=== PATIENT | female | born 1960 | race Caucasian/White ===

== ENCOUNTER 2017-10-09 18:17 | Emergency (ER) | payer OTHER ==
--- NOTE | 2017-10-09 18:24 | PDOC ---
Rapid Medical Evaluation Time Seen by Provider: 10/09/17 18:19 Medical Evaluation: Allergies Allergy/AdvReac Type Severity Reaction Status Date / Time No Known Drug Allergies Allergy Verified 02/07/16 10:32 10/09/17 18:19 I have performed a brief in-person evaluation of this patient. The patient presents with a chief complaint of: hx of diarrhea x years, had endoscopy and biopsy saturday for workup, felt uncomfortable saturday, pain since this morning, couldn't sit since 1 this afternoon, "felt like when i had caesarean", took motrin an hour ago w/o relief Pertinent physical exam findings: uncomfortable appearing I have ordered the following: labs The patient will proceed to the ED for further evaluation. Discharge Disposition - Diagnosis Abdominal pain - Referrals - Patient Instructions - Post Discharge Activity
[2017-10-09 18:26] VITALS: BP 165/102; PULSE 104; TEMP 99.8; BMI 31.8
[2017-10-09 18:59] LABS: BASO % 0.3 % (0-2.0); EOS % 0.7 % (0-4.5); HEMATOCRIT 39.7 % (32.4-45.2); HEMOGLOBIN 13.5 GM/dL (10.7-15.3); LYMPH % 26.9 % (8-40); MCH 30.2 pg (25.7-33.7); MCHC 34.1 g/dl (32.0-36.0); MEAN CELL VOLUME 88.5 fl (80-96); MEAN PLT VOLUME 8.4 fl (7.5-11.1); MONO % 6.6 % (3.8-10.2); NEUT % 65.5 % (42.8-82.8); PLATELET COUNT 256 K/MM3 (134-434); RBC 4.48 M/mm3 (3.60-5.2); RDW 13.3 % (11.6-15.6); WHITE BLOOD COUNT 7.8 K/mm3 (4.0-10.0)
[2017-10-09 19:01] LABS: URINE APPEARANCE CLEAR; URINE BILIRUBIN NEGATIVE (NEGATIVE); URINE BLOOD NEGATIVE (NEGATIVE); URINE COLOR STRAW; URINE GLUCOSE (UA) NEGATIVE (NEGATIVE); URINE KETONE NEGATIVE (NEGATIVE); URINE LEUK ESTERASE NEGATIVE (NEGATIVE); URINE NITRITE NEGATIVE (NEGATIVE); URINE PROTEIN NEGATIVE (NEGATIVE); URINE UROBILINOGEN NEGATIVE mg/dL (0.2-1.0)
[2017-10-09 19:12] LABS: INR 1.03 (0.82-1.09); PROTHROMBIN TIME (PATIENT) 11.6 SEC (9.98-11.88)
[2017-10-09 19:23] LABS: ALBUMIN 3.9 g/dl (3.4-5.0); ANION GAP 10 (8-16); BILIRUBIN,TOTAL 0.5 mg/dL (0.2-1.0); BLOOD UREA NITROGEN 11 mg/dL (7-18); CALCIUM 8.3 mg/dL (8.5-10.1); CHLORIDE 105 mmol/L (98-107); CO2 24 mmol/L (21-32); CREATININE 0.6 mg/dL (0.55-1.02); GLUCOSE,RANDOM 118 mg/dL (74-106); POTASSIUM 3.8 mmol/L (3.5-5.1); SGOT/AST 23 U/L (15-37); SODIUM 139 mmol/L (136-145); TOT PROT 7.6 g/dl (6.4-8.2)
[2017-10-09 19:29] LABS: ALK PHOS 120 U/L (45-117); SGPT/ALT 41 U/L (12-78)
--- NOTE | 2017-10-09 20:00 | PDOC ---
History of Present Illness - General History Source: Patient, Old Records Exam Limitations: No Limitations - History of Present Illness Initial Comments: 10/09/17 20:07 The patient is a 57 year old female with no significant past medical history, who presents to the emergency department today for further evaluation of abdominal pain today and diarrhea for 2 years. The patient states that on Saturday she visited her GI doctor and received an endoscopy and colonoscopy ( results pending). Today her abdominal pain became worse and she reported here. She notes that she has been able to eat and that she has not experienced any weight loss. She denies fever and dysuria. <Sam Robbins - Last Filed: 10/09/17 20:07> - General History Source: Patient <JerichoIftikhar hunter - Last Filed: 10/09/17 22:05> - General Chief Complaint: Pain, Acute Stated Complaint: PAIN Time Seen by Provider: 10/09/17 18:19 Past History <Sam Robbins - Last Filed: 10/09/17 20:07> - Past Medical History Anemia: No Asthma: No Cancer: No Cardiac Disorders: No CVA: No COPD: No CHF: No Dementia: No Diabetes: No GI Disorders: No Disorders: No HTN: No Hypercholesterolemia: No Liver Disease: No Seizures: No Thyroid Disease: No - Surgical History Abdominal Surgery: Yes Appendectomy: No Cardiac Surgery: No Cholecystectomy: No Lung Surgery: No Neurologic Surgery: No - Immunization History Immunization Up to Date: Yes - Suicide/Smoking/Psychosocial Hx Smoking History: Never smoked Have you smoked in the past 12 months: No Hx Alcohol Use: No Drug/Substance Use Hx: No Substance Use Type: None Hx Substance Use Treatment: No <Iftikhar Nix - Last Filed: 10/09/17 22:05> - Past Medical History Allergies/Adverse Reactions: Allergies Allergy/AdvReac Type Severity Reaction Status Date / Time No Known Drug Allergies Allergy Verified 10/09/17 18:19 Home Medications: Ambulatory Orders Ibuprofen 600 mg PO PRN 10/09/17 levoFLOXacin [Levaquin -] 500 mg PO DAILY #7 tablet 10/09/17 metroNIDAZOLE [Flagyl] 500 mg PO BID #14 tablet 10/09/17 Review of Systems - Review of Systems Able to Perform ROS?: Yes Comments:: 10/09/17 20:08 CONSTITUTIONAL: Absent: fever, no chills, no fatigue EYES: Absent: visual changes ENT: Absent: ear pain, no sore throat CARDIOVASCULAR: Absent: chest pain, no palpitations RESPIRATORY: Absent: cough, no SOB GI: (+) Abdominal pain, diarrhea. Absent: No nausea, no vomiting, no constipation, GENITOURINARY: Absent: dysuria, no frequency, no hematuria MUSCULOSKELETAL: Absent: back pain, no arthralgia, no myalgia SKIN: Absent: rash <Sam Robbins - Last Filed: 10/09/17 20:07> *Physical Exam - Vital Signs Last Vital Signs Temp Pulse Resp BP Pulse Ox 99.8 F H 104 H 19 165/102 98 10/09/17 18:19 10/09/17 18:19 10/09/17 18:19 10/09/17 18:19 10/09/17 18:19 - Physical Exam Comments: 10/09/17 20:08 GENERAL: Well-appearing, well-nourished. No apparent distress. HEENT: Normocephalic, atraumatic. PERRL, EOM intact. CARDIOVASCULAR: Normal S1, S2. Regular rate and rhythm. PULMONARY: Clear to auscultation bilaterally. ABDOMEN: Soft, non-distended, non-tender. EXTREMITIES: Normal ROM in all four extremities. No gross deformities. SKIN: Warm, dry. No rash NEUROLOGICAL: No focal neurological deficits. <Urban Robbinske - Last Filed: 10/09/17 20:07> - Vital Signs Last Vital Signs Temp Pulse Resp BP Pulse Ox 99.8 F H 104 H 19 165/102 98 10/09/17 18:19 10/09/17 18:19 10/09/17 18:19 10/09/17 18:19 10/09/17 18:19 <Iftikhar Nix - Last Filed: 10/09/17 22:05> ED Treatment Course - LABORATORY CBC & Chemistry Diagram: 10/09/17 18:40 10/09/17 18:40 - ADDITIONAL ORDERS Additional order review: Laboratory Results 10/09/17 10/09/17 10/09/17 18:46 18:40 18:40 PT with INR INR Sodium 139 Potassium 3.8 Chloride 105 Carbon Dioxide 24 Anion Gap 10 BUN 11 Creatinine 0.6 Creat Clearance w eGFR > 60 Random Glucose 118 H Calcium 8.3 L Total Bilirubin 0.5 D AST 23 ALT 41 Alkaline Phosphatase 120 H Total Protein 7.6 Albumin 3.9 Lipase 113 Urine Color Straw Urine Appearance Clear Urine pH 6.0 Ur Specific [place] 1.009 Urine Protein Negative Urine Glucose (UA) Negative Urine Ketones Negative Urine Blood Negative Urine Nitrite Negative Urine Bilirubin Negative Urine Urobilinogen Negative Ur Leukocyte Esterase Negative 10/09/17 18:40 PT with INR 11.60 INR 1.03 Sodium Potassium Chloride Carbon Dioxide Anion Gap BUN Creatinine Creat Clearance w eGFR Random Glucose Calcium Total Bilirubin AST ALT Alkaline Phosphatase Total Protein Albumin Lipase Urine Color Urine Appearance Urine pH Ur Specific [place] Urine Protein Urine Glucose (UA) Urine Ketones Urine Blood Urine Nitrite Urine Bilirubin Urine Urobilinogen Ur Leukocyte Esterase 10/09/17 18:40 RBC 4.48 MCV 88.5 MCHC 34.1 RDW 13.3 MPV 8.4 Neutrophils % 65.5 Lymphocytes % 26.9 Monocytes % 6.6 Eosinophils % 0.7 Basophils % 0.3 <Sam Robbins - Last Filed: 10/09/17 20:07> - LABORATORY CBC & Chemistry Diagram: 10/09/17 18:40 10/09/17 18:40 - ADDITIONAL ORDERS Additional order review: Laboratory Results 10/09/17 10/09/17 10/09/17 18:46 18:40 18:40 PT with INR INR Sodium 139 Potassium 3.8 Chloride 105 Carbon Dioxide 24 Anion Gap 10 BUN 11 Creatinine 0.6 Creat Clearance w eGFR > 60 Random Glucose 118 H Calcium 8.3 L Total Bilirubin 0.5 D AST 23 ALT 41 Alkaline Phosphatase 120 H Total Protein 7.6 Albumin 3.9 Lipase 113 Urine Color Straw Urine Appearance Clear Urine pH 6.0 Ur Specific [place] 1.009 Urine Protein Negative Urine Glucose (UA) Negative Urine Ketones Negative Urine Blood Negative Urine Nitrite Negative Urine Bilirubin Negative Urine Urobilinogen Negative Ur Leukocyte Esterase Negative 10/09/17 18:40 PT with INR 11.60 INR 1.03 Sodium Potassium Chloride Carbon Dioxide Anion Gap BUN Creatinine Creat Clearance w eGFR Random Glucose Calcium Total Bilirubin AST ALT Alkaline Phosphatase Total Protein Albumin Lipase Urine Color Urine Appearance Urine pH Ur Specific [place] Urine Protein Urine Glucose (UA) Urine Ketones Urine Blood Urine Nitrite Urine Bilirubin Urine Urobilinogen Ur Leukocyte Esterase 10/09/17 18:40 RBC 4.48 MCV 88.5 MCHC 34.1 RDW 13.3 MPV 8.4 Neutrophils % 65.5 Lymphocytes % 26.9 Monocytes % 6.6 Eosinophils % 0.7 Basophils % 0.3 <Iftikhar Nix - Last Filed: 10/09/17 22:05> Medical Decision Making - Medical Decision Making 10/09/17 22:05 Dr. Nix: The scribe's documentation has been prepared under my direction and personally reviewed by me in its entirery. I confirm that the note above accurately reflects all work, treatment, procedures, and medical decision making performed by me. <Iftikhar Nix - Last Filed: 10/09/17 22:05> *DC/Admit/Observation/Transfer - Attestations Scribe Attestion: 10/09/17 20:08 Documentation prepared by Sam Robbins, acting as medical scientific officer for Iftikhar Nix DO. <Sam Robbins - Last Filed: 10/09/17 20:07> - Discharge Dispostion Admit: No <Iftikhar Nix - Last Filed: 10/09/17 22:05> Diagnosis at time of Disposition: Abdominal pain, Acute diverticulitis - Discharge Dispostion Disposition: HOME Condition at time of disposition: Stable - Referrals Referrals: Praveena Mena [Primary Care Provider] - - Patient Instructions Printed Discharge Instructions: DI for Diverticulitis Additional Instructions: Please follow up with your GI doctor as soon as possible for re-evaluation of diverticulitis. Take medication as directed. Return if any problems. Print Language: TAMAZIGHT - Post Discharge Activity
[2017-10-09] MEDS ORDERED: SODIUM CHLORIDE 1,000 ML IV STA (20:17)
== END 2017-10-09 22:12 | disposition home or self-care (01) ==
LOC: JER 18:17
PROC: 3E0337Z Introduction of Electrolytic and Water Balance Substance into Peripheral Vein, Percutaneous Approach (ICD-10-PCS; principal; 2017-10-09)
PROC: 3E03329 Introduction of Other Anti-infective into Peripheral Vein, Percutaneous Approach (ICD-10-PCS; 2017-10-09)
DX: K57.32 Diverticulitis of large intestine without perforation or abscess without bleeding (principal); K80.20 Calculus of gallbladder without cholecystitis without obstruction
CPT/HCPCS: 36415; 74176-TC; 80053; 81003; 83690; 85025; 85610; 87040; 87077; 87086; 87186; 99284-25

== ENCOUNTER 2018-04-16 00:15 | Observation (INO) | payer OTHER ==
[2018-04-16] MEDS ORDERED: SODIUM CHLORIDE 1,000 ML IV STA (02:15)
[2018-04-16] MEDS ORDERED: FAMOTIDINE 20 MG/50 ML IVPB 20 MG/50 ML MG IVPB ONE ×2 (02:15→03:42)
[2018-04-16] MEDS ORDERED: ONDANSETRON 4 MG/2 ML VIAL IVPUSH ONE ×2 (02:15→11:32)
[2018-04-16 02:17] VITALS: BMI 35.2
[2018-04-16] MEDS ORDERED: MAG HYDROX/AL HYDROX/SIMETH 30 ML UNIT-DOSE CUP PO ONE (03:03)
[2018-04-16] MEDS ORDERED: ACETAMINOPHEN 325 MG TABLET (FP) PO ONE (03:04)
[2018-04-16] MEDS ORDERED: ACETAMINOPHEN 325 MG TABLET (FP) ONE (03:42)
[2018-04-16] MEDS ORDERED: ONDANSETRON 4 MG/2 ML VIAL ONE ×3 (03:42→20:00)
[2018-04-16] MEDS ORDERED: MAG HYDROX/AL HYDROX/SIMETH 30 ML UNIT-DOSE CUP ONE (03:42)
[2018-04-16 03:53] LABS: BASO % 0.4 % (0-2.0); EOS % 0.2 % (0-4.5); HEMATOCRIT 40.5 % (32.4-45.2); HEMOGLOBIN 13.7 GM/dL (10.7-15.3); LYMPH % 12.4 % (8-40); MCH 30.4 pg (25.7-33.7); MCHC 33.9 g/dl (32.0-36.0); MEAN CELL VOLUME 89.8 fl (80-96); MONO % 2.4 % (3.8-10.2); NEUT % 84.6 % (42.8-82.8); PLATELET COUNT 283 K/MM3 (134-434); RBC 4.51 M/mm3 (3.60-5.2); RDW 13.7 % (11.6-15.6); WHITE BLOOD COUNT 10.2 K/mm3 (4.0-10.0)
[2018-04-16 04:13] LABS: ALBUMIN 3.8 g/dl (3.4-5.0); ALK PHOS 146 U/L (45-117); ANION GAP 6 MMOL/L (8-16); BILIRUBIN,TOTAL 0.4 mg/dL (0.2-1.0); BLOOD UREA NITROGEN 13 mg/dL (7-18); CALCIUM 8.6 mg/dL (8.5-10.1); CHLORIDE 108 mmol/L (98-107); CO2 28 mmol/L (21-32); CREATININE 0.7 mg/dL (0.55-1.02); GLUCOSE,RANDOM 139 mg/dL (74-106); LIPASE 109 U/L (73-393); SGPT/ALT 155 U/L (12-78); SODIUM 142 mmol/L (136-145); TOT PROT 7.7 g/dl (6.4-8.2)
[2018-04-16 04:14] LABS: POTASSIUM 4.7 mmol/L (3.5-5.1); SGOT/AST 56 U/L (15-37)
--- NOTE | 2018-04-16 04:14 | PDOC ---
History of Present Illness - General Chief Complaint: Pain Stated Complaint: VOMITING Time Seen by Provider: 04/16/18 02:15 History Source: Patient Exam Limitations: No Limitations - History of Present Illness Initial Comments: 04/16/18 04:13 Art Perez 57 YOF with no medical history presenting with acute onset of epigastric pain, nausea and NBNB emesis since 9pm tonight. No fevers or chills, no flank pain or urinary sx. Ate rice and beans earlier today, but no other sick contacts or travel or suspicious food intake. Past History - Past Medical History Allergies/Adverse Reactions: Allergies Allergy/AdvReac Type Severity Reaction Status Date / Time No Known Drug Allergies Allergy Verified 04/16/18 02:09 Home Medications: Ambulatory Orders NK [No Known Home Medication] 04/16/18 Anemia: No Asthma: No Cancer: No Cardiac Disorders: No CVA: No COPD: No CHF: No Dementia: No Diabetes: No GI Disorders: No Disorders: No HTN: No Hypercholesterolemia: No Liver Disease: No Seizures: No Thyroid Disease: No - Surgical History Abdominal Surgery: Yes Appendectomy: No Cardiac Surgery: No Cholecystectomy: No Lung Surgery: No Neurologic Surgery: No - Immunization History Immunization Up to Date: Yes - Suicide/Smoking/Psychosocial Hx Smoking History: Never smoked Have you smoked in the past 12 months: No Information on smoking cessation initiated: No Hx Alcohol Use: No Drug/Substance Use Hx: No Substance Use Type: None Hx Substance Use Treatment: No Review of Systems - Review of Systems Able to Perform ROS?: Yes Comments:: 04/16/18 04:14 GENERAL/CONSTITUTIONAL: No fever or chills. No weakness. no sweats. HEAD, EYES, EARS, NOSE AND THROAT: No change in vision or hearing. No ear pain or discharge. No sore throat or mouth pain. No difficulty swallowing.. No congestion. CARDIOVASCULAR: No chest pain or palpitations, syncope or edema. RESPIRATORY: No SOB, cough, wheezing, or hemoptysis. GASTROINTESTINAL: +abdominal pain, nausea/vomiting. No diarrhea or constipation. GENITOURINARY: No hematuria, dysuria, frequency, urgency or other changes. MUSCULOSKELETAL: No joint or muscle swelling or pain. No neck or back pain. SKIN: No rash or changes in skin color or lesions. NEUROLOGIC: No headache, vertigo, loss of consciousness, or change in strength/ sensation. No gait instability. HEMATOLOGIC/LYMPHATIC: No anemia, easy bruising/bleeding, or history of blood clots. ALLERGIC/IMMUNOLOGIC: No allergies All other systems reviewed and negative, or as documented in HPI. *Physical Exam - Vital Signs Last Vital Signs Temp Pulse Resp BP Pulse Ox 98.5 F 53 L 18 147/93 99 04/16/18 02:11 04/16/18 02:11 04/16/18 02:11 04/16/18 02:11 04/16/18 02:11 - Physical Exam Comments: 04/16/18 04:14 General: mild distress 2/2 nausea and vomiting. HEENT: NCAT, PERRL, EOMI, clear conjunctiva, anicteric, moist mucus membranes, clear oropharynx, no oral lesions.. Neck: neck supple, FROM Resp: CTAB, normal and even respirations, no respiratory distress CVS: RRR, no murmurs, 2+ peripheral pulses throughout, no peripheral edema Abdomen: soft, +epigastric TTP, no RUQ tenderness or Jones's, no peritoneal signs. Back: nontender, normal inspection and ROM MSK: no edema, POSADA x4, ROM intact. No clubbing or cyanosis. normal bulk and tone. Neuro: alert, oriented appropriately; no focal neurologic deficits. SILT, 5/5 distal and prox strength in all extrem. speech clear. Skin: warm and well perfused, cap refill <2 sec, normal color 04/16/18 07:18 Procedures - Bedside Ultrasound Bedside Ultrasound: Gallbladder Remarks: 04/16/18 07:20 RUQ biliary ultrasound performed for abdominal pain. views obtained: gallbladder long and short, CBD. findings: multiple gallstones in gallbladder, normal GB wall and no pericholecystic fluid. CBD normal for age ~5mm. no sonographic jones's sign impression: cholelithiasis w/o cholecystitis. ED Treatment Course - LABORATORY CBC & Chemistry Diagram: 04/16/18 03:40 04/16/18 03:40 - ADDITIONAL ORDERS Additional order review: 04/16/18 03:40 RBC 4.51 MCV 89.8 MCHC 33.9 RDW 13.7 MPV 8.0 Neutrophils % 84.6 H D Lymphocytes % 12.4 D Monocytes % 2.4 L Eosinophils % 0.2 Basophils % 0.4 - Medications Given in the ED: ED Medications Discontinued Medications Generic Name Dose Route Start Last Admin Trade Name Stevo PRN Reason Stop Dose Admin Acetaminophen 975 mg 04/16/18 03:04 04/16/18 03:53 Tylenol - PO 04/16/18 03:05 Not Given ONCE ONE Al Hydroxide/Mg Hydroxide 30 ml 04/16/18 03:03 04/16/18 03:53 Mylanta Oral Suspension - PO 04/16/18 03:04 30 ml ONCE ONE Administration Famotidine/Sodium Chloride 20 mg in 50 mls @ 100 mls/hr 04/16/18 02:15 03:53 Pepcid 20 Mg Premixed Ivpb - IVPB 04/16/18 02:44 100 mls/hr ONCE ONE Administration Sodium Chloride 1,000 mls @ 1,000 mls/hr 04/16/18 02:15 04/16/18 03:52 Normal Saline - IV 04/16/18 03:14 1,000 mls/hr ASDIR STA Administration Ondansetron HCl 4 mg 04/16/18 02:15 04/16/18 03:53 Zofran Injection IVPUSH 04/16/18 02:16 4 mg ONCE ONE Administration Medical Decision Making - Medical Decision Making 04/16/18 04:50 Art Clarkores 57 YOF with no medical history presenting with acute onset of epigastric pain, nausea and NBNB emesis since 9pm tonight. No fevers or chills, no flank pain or urinary sx. Ate rice and beans earlier today, but no other sick contacts or travel or suspicious food intake. DDx abdominal pain: GERD, PUD, esophageal spasm, pancreatitis, hepatitis, constipation, colitis, enteritis, symptomatic cholelithiasis, biliary colic, choledocholithiasis, cholecystitis, UTI, pyelonephritis, hernia, appendicitis, diverticulitis; doubt pelvic pathology, no lower quad tenderness. Vitals wnl, reviewed, Labs and lytes, wnl. Lipase normal. LFTs mildly elevated in 100s, changed from prior. EKG normal sinus rhythm, no interval abnormalities, narrow QRS, ST and T wave segments and morphology normal. Nonspecific T wave abnormalities Interventions here with maalox, pepcid, GI cocktail, fluids, zofran/reglan and tylenol, morphine for pain control, mild improvement with difficulty jesi PO meds still. Bedside RUQ sono +multiple gallstones w/o murphys sign or signs of cholecystitis. CBD wnl for age ~5mm. With persistent sx, difficulty jesi PO and pain, will obs and await AM RUQ ultrasound and clinical reeval. Dispo: ED obs for symptomatic cholelithiasis, requires AM RUQ sono officially. reeval, may need obs admit, updated hospitalist team overnight pending US and reeval in the morning. 04/16/18 07:22 *DC/Admit/Observation/Transfer Diagnosis at time of Disposition: Symptomatic cholelithiasis - Discharge Dispostion Condition at time of disposition: Stable - Referrals Referrals: Praveena Mena [Primary Care Provider] - - Patient Instructions - Post Discharge Activity
[2018-04-16] MEDS ORDERED: ACETAMINOPHEN 1000 MG/100 ML VIAL (NON FORMULARY) IVPB ONE (04:29)
[2018-04-16] MEDS ORDERED: morphine CARPU-JECT 4 MG/1 ML DISP.SYRIN IVPUSH ONE (04:30)
[2018-04-16] MEDS ORDERED: METOCLOPRAMIDE HCL INJECTION 10 MG/2 ML VIAL IVPUSH ONE (04:30)
[2018-04-16] MEDS ORDERED: METOCLOPRAMIDE HCL INJECTION 10 MG/2 ML VIAL ONE (04:31)
[2018-04-16] MEDS ORDERED: morphine SULFATE 4 MG/ML VIAL ONE (04:40)
[2018-04-16] MEDS ORDERED: SODIUM CHLORIDE 500 ML IV STA (11:04)
[2018-04-16 11:16] LABS: URINE APPEARANCE SLCLOUDY; URINE BILIRUBIN NEGATIVE (<2.0 mg/dL); URINE COLOR YELLOW; URINE GLUCOSE (UA) NEGATIVE (NEGATIVE); URINE KETONE NEGATIVE (NEGATIVE); URINE LEUK ESTERASE NEGATIVE (NEGATIVE); URINE NITRITE NEGATIVE (NEGATIVE); URINE PROTEIN NEGATIVE (NEGATIVE); URINE UROBILINOGEN NEGATIVE mg/dL (0.2-1.0)
--- NOTE | 2018-04-16 11:58 | EKG ---
Test Reason : Blood Pressure : / mmHG Vent. Rate : 058 BPM Atrial Rate : 058 BPM P-R Int : 134 ms QRS Dur : 086 ms QT Int : 478 ms P-R-T Axes : 012 -12 006 degrees QTc Int : 469 ms SINUS BRADYCARDIA MINIMAL VOLTAGE CRITERIA FOR LVH, MAY BE NORMAL VARIANT CANNOT RULE OUT ANTERIOR INFARCT , AGE UNDETERMINED ABNORMAL ECG WHEN COMPARED WITH ECG OF 07-OCT-2015 21:55, NO SIGNIFICANT CHANGE WAS FOUND Confirmed by DAQUAN MESSER MD ([id number]) on 04/16/2018 11:58:21 AM Referred By: Confirmed By:DAQUAN MESSER MD
--- NOTE | 2018-04-16 13:18 | PDOC ---
*Physical Exam - Vital Signs Last Vital Signs Temp Pulse Resp BP Pulse Ox 99.1 F 61 18 136/76 95 04/16/18 11:03 04/16/18 11:03 04/16/18 11:03 04/16/18 11:03 04/16/18 11:03 - Physical Exam Comments: 04/16/18 14:16 Patient endorsed to me by Dr. Hogan. Patient is a 57-year-old female with no previous significant medical history who presented with right upper quadrant and epigastric pain associated with numerous episodes of intractable vomiting and nausea requiring several doses of antiemetic parenteral medication. Right upper quadrant ultrasound reveals numerous gallstones and a questionable hepatic lesion which requires further investigation with contrast-enhanced CT. No evidence of acute cholecystitis is present. CBC is within normal limit. CMP reveals elevated AST, ALT and alkaline phosphatase. Normal bilirubin is noted. Given the presence of gallstones, persistent abdominal pain and abnormal LFTs, patient will require admission for further evaluation. Will consult GI. ED Treatment Course - LABORATORY CBC & Chemistry Diagram: 04/16/18 03:40 04/16/18 03:40 - ADDITIONAL ORDERS Additional order review: Laboratory Results 04/16/18 04/16/18 04/16/18 11:05 11:05 03:40 Sodium 142 Potassium 4.7 Chloride 108 H Carbon Dioxide 28 Anion Gap 6 L BUN 13 Creatinine 0.7 Creat Clearance w eGFR > 60 Random Glucose 139 H Calcium 8.6 Total Bilirubin 0.4 AST 56 H ALT 155 H Alkaline Phosphatase 146 H Total Protein 7.7 Albumin 3.8 Lipase 109 Urine Color Yellow Urine Appearance Slcloudy Urine pH 6.0 Ur Specific [place] 1.017 Urine Protein Negative Urine Glucose (UA) Negative Urine Ketones Negative Urine Blood Negative Urine Nitrite Negative Urine Bilirubin Negative Urine Urobilinogen Negative Ur Leukocyte Esterase Negative Urine HCG, Qual Negative 04/16/18 03:40 RBC 4.51 MCV 89.8 MCHC 33.9 RDW 13.7 MPV 8.0 Neutrophils % 84.6 H D Lymphocytes % 12.4 D Monocytes % 2.4 L Eosinophils % 0.2 Basophils % 0.4 - RADIOLOGY Radiology Studies Ordered: Category Date Time Status ABDOMEN & PELVIS CT WITH CONTR [CT] Stat CT Scan 04/16/18 10:48 Ordered - Medications Given in the ED: ED Medications Discontinued Medications Generic Name Dose Route Start Last Admin Trade Name Freq PRN Reason Stop Dose Admin Acetaminophen 975 mg 04/16/18 03:04 04/16/18 03:53 Tylenol - PO 04/16/18 03:05 Not Given ONCE ONE Al Hydroxide/Mg Hydroxide 30 ml 04/16/18 03:03 04/16/18 03:53 Mylanta Oral Suspension - PO 04/16/18 03:04 30 ml ONCE ONE Administration Famotidine/Sodium Chloride 20 mg in 50 mls @ 100 mls/hr 04/16/18 02:15 03:53 Pepcid 20 Mg Premixed Ivpb - IVPB 04/16/18 02:44 100 mls/hr ONCE ONE Administration Sodium Chloride 1,000 mls @ 1,000 mls/hr 04/16/18 02:15 04/16/18 03:52 Normal Saline - IV 04/16/18 03:14 1,000 mls/hr ASDIR STA Administration Sodium Chloride 500 mls @ 500 mls/hr 04/16/18 11:04 04/16/18 11:20 Normal Saline - IV 04/16/18 12:03 500 mls/hr ASDIR STA Administration Metoclopramide HCl 10 mg 04/16/18 04:30 04/16/18 04:35 Reglan Injection - IVPUSH 04/16/18 04:31 10 mg ONCE ONE Administration Morphine Sulfate 4 mg 04/16/18 04:30 04/16/18 04:43 Morphine Injection - IVPUSH 04/16/18 04:31 4 mg ONCE ONE Administration Ondansetron HCl 4 mg 04/16/18 02:15 04/16/18 03:53 Zofran Injection IVPUSH 04/16/18 02:16 4 mg ONCE ONE Administration Ondansetron HCl 4 mg 04/16/18 11:32 04/16/18 11:33 Zofran Injection IVPUSH 04/16/18 11:33 4 mg NOW ONE Administration *DC/Admit/Observation/Transfer Diagnosis at time of Disposition: Symptomatic cholelithiasis, Abnormal LFTs Intractable nausea and vomiting Qualifiers: Vomiting type: unspecified Qualified Code(s): R11.2 - Nausea with vomiting, unspecified - Discharge Dispostion Condition at time of disposition: Fair Decision to Admit order: Yes - Referrals Referrals: Praveena Mena [Primary Care Provider] - - Patient Instructions - Post Discharge Activity
[2018-04-16] MEDS ORDERED: PIPERACILLIN/TAZOB 3.375 GM 3.375 GM in DEXTROSE 5%-WATER - 50 ML IVPB ONE (16:50)
[2018-04-16] MEDS ORDERED: ONDANSETRON 4 MG/2 ML VIAL IVPUSH PRN (16:59)
--- NOTE | 2018-04-16 17:02 | HP ---
Admitting History and Physical - Primary Care Physician PCP: Arcelia Tyler - Admission Chief Complaint: abdominal pain. Nausea/Vomiting History of Present Illness: atient endorsed to me by Dr. Hogan. Patient is a 57-year-old female with no previous significant medical history who presented with right upper quadrant and epigastric pain associated with numerous episodes of intractable vomiting and nausea requiring several doses of antiemetic parenteral medication. Right upper quadrant ultrasound reveals numerous gallstones and a questionable hepatic lesion which requires further investigation with contrast-enhanced CT. No evidence of acute cholecystitis is present. CBC is within normal limit. CMP reveals elevated AST, ALT and alkaline phosphatase. Normal bilirubin is noted. Given the presence of gallstones, persistent abdominal pain and abnormal LFTs, patient will require admission for further evaluation. Will consult GI. History Source: Patient, Medical Record Limitations to Obtaining History: No Limitations - Smoking History Smoking history: Never smoked Have you smoked in the past 12 months: No - Alcohol/Substance Use Hx Alcohol Use: No Home Medications - Allergies Allergies/Adverse Reactions: Allergies Allergy/AdvReac Type Severity Reaction Status Date / Time No Known Drug Allergies Allergy Verified 04/16/18 02:09 - Home Medications Home Medications: Ambulatory Orders NK [No Known Home Medication] 04/16/18 Review of Systems - Review of Systems Constitutional: reports: Loss of Appetite, Weakness Eyes: reports: No Symptoms HENT: reports: No Symptoms Neck: reports: No Symptoms Cardiovascular: reports: No Symptoms Respiratory: reports: No Symptoms Gastrointestinal: reports: Abdominal Pain, Nausea, Vomiting Genitourinary: reports: No Symptoms Breasts: reports: No Symptoms Reported Musculoskeletal: reports: No Symptoms Integumentary: reports: No Symptoms Neurological: reports: No Symptoms Endocrine: reports: No Symptoms Hematology/Lymphatic: reports: No Symptoms Psychiatric: reports: No Symptoms Physical Examination Vital Signs: Vital Signs Temperature 99.1 F 04/16/18 11:03 Pulse Rate 61 04/16/18 11:03 Respiratory Rate 18 04/16/18 11:03 Blood Pressure 136/76 04/16/18 11:03 O2 Sat by Pulse Oximetry (%) 95 04/16/18 11:03 Constitutional: Yes: Well Nourished, No Distress, Calm Cardiovascular: Yes: Regular Rate and Rhythm Respiratory: Yes: Regular Gastrointestinal: Yes: Soft, Hypoactive Bowel Sounds, Tenderness (RUQ), Tenderness, Epigastrium Musculoskeletal: Yes: WNL Extremities: Yes: WNL Edema: No Peripheral Pulses WNL: Yes Neurological: Yes: Alert, Oriented Psychiatric: Yes: Alert, Oriented Labs: CBC, BMP 04/16/18 03:40 04/16/18 03:40 Imaging - Results Cat Scan: Report Reviewed Ultrasound: Report Reviewed Problem List - Problems (1) Abnormal LFTs Assessment/Plan: -2/2 to choleycystitis -GI consult -Surgery consult -monitor trend Code(s): R94.5 - ABNORMAL RESULTS OF LIVER FUNCTION STUDIES (2) Intractable nausea and vomiting Assessment/Plan: -GI consult -Surgery consult -Zofran Code(s): R11.2 - NAUSEA WITH VOMITING, UNSPECIFIED Qualifiers: Vomiting type: unspecified Qualified Code(s): R11.2 - Nausea with vomiting , unspecified (3) Symptomatic cholelithiasis Assessment/Plan: -GI consult -Surgery consult -choleycystitis? Code(s): K80.20 - CALCULUS OF GALLBLADDER W/O CHOLECYSTITIS W/O OBSTRUCTION (4) Abdominal pain Code(s): R10.9 - UNSPECIFIED ABDOMINAL PAIN Assessment/Plan see problem list
--- NOTE | 2018-04-16 17:16 | CON.GI ---
Consult Consult Specialty:: gastroenterology Reason for Consultation:: abdominal pain / nausea / vomiting - History of Present Illness History of Present Illness: Mrs. Art Perez is a 57 year old woman with no past medical history who presents to the ER with complaints of RUQ / epigastric abdominal pain, multiple episodes of nausea/ vomiting. She states her symptoms began suddenly the night prior to admission. She has never had similar episode in the past. She denies hemetemesis, melena, diarrhea, constipation , fever, chills, travel, sick contact , culprit foods. She states she had a colonoscopy one year ago - she reports to be normal. 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: No: Alzheimer's, CVA, Dementia, Migraine, Multiple Sclerosis, Peripheral Neuropathy, Parkinson's, Seizure, Syncope, TIA, Vertigo, Other Cardio/Vascular: No: AFIB, Aneurysm, Aortic Insufficiency, Aortic Stenosis, CAD , CHF, Deep Vein Thrombosis, HTN, Hyperlipdemia, SD, Mitral Insufficiency, Mitral Stenosis, Murmur, Pulmonary Hypertension, Other Pulmonary: No: Asthma, Bronchitis, Cancer, COPD, O2 Dependent, Pneumonia, Previously Intubated, Pulmonary Embolus, Pulmonary Fibrosis, Sleep Apnea, Other Gastrointestinal: No: Ascites, Cancer, Constipation, Crohn's Disease, Diverticulitis, Diverticulosis, Esophageal Varices, Gastritis, GERD, GI Bleed, Hemorrhoids, Hiatal Hernia, Inflamatory Bowel Disease, Irritable Bowel Disease, Pancreatitis, Peptic Ulcer Disease, Ulcerative Colitis, Other - Alcohol/Substance Use Hx Alcohol Use: No - Smoking History Smoking history: Never smoked Have you smoked in the past 12 months: No Home Medications - Allergies Allergies/Adverse Reactions: Allergies Allergy/AdvReac Type Severity Reaction Status Date / Time No Known Drug Allergies Allergy Verified 04/16/18 02:09 - Home Medications Home Medications: Ambulatory Orders NK [No Known Home Medication] 04/16/18 Family Disease History - Family Disease History Family History: Unremarkable Review of Systems Unable to obtain ROS, reason: as per HPI - Review of Systems Constitutional: reports: Weakness Eyes: denies: No Symptoms, Blind Spots, Blurred Vision, Double Vision, Eye Pain , Floaters, Photophobia, Recent Change in Vision, Other HENT: denies: No Symptoms, Difficult Swallowing, Ear Discharge, Ear Pain, Epistaxis, Gingival Bleeding, Hearing Loss, Mouth Swelling, Nasal Congestion, Ocular Prosthesis, Throat Pain, Toothache, Ringing in Ears, Other Neck: denies: No Symptoms, Decreased ROM, Lumps, Pain on Movement, Stiffness, Swollen Glands, Tenderness, Other Cardiovascular: denies: No Symptoms, Chest Pain, Edema, Palpitations, Shortness of Breath, Other Respiratory: denies: No Symptoms, Cough, Exercise Intolerance, Hemoptysis, Orthopnea, PND, Snoring, SOB, SOB on Exertion, Wheezing, Other Gastrointestinal: reports: Other (see HPI) Genitourinary: denies: No Symptoms, Burning, Discharge, Dysuria, Flank Pain, Frequency, Hematuria, Incontinence, Lesions, Menses, Pain, Testicular Mass, Testicular Pain, Testicular Swelling, Urgency, Vaginal Bleeding, Other Physical Exam-GI Vital Signs: Vital Signs Temperature 99.1 F 04/16/18 11:03 Pulse Rate 61 04/16/18 11:03 Respiratory Rate 18 04/16/18 11:03 Blood Pressure 136/76 04/16/18 11:03 O2 Sat by Pulse Oximetry (%) 95 04/16/18 11:03 Constitutional: Yes: Well Nourished Eyes: No: WNL, Conjunctiva Clear, EOM Intact, Cataracts, Diplopia, Occular Prosthesis, PERRL, Ptosis, Sclera Icterus, Tearing, Other HENT: No: WNL, Atraumatic, Normocephalic, Drooling, Epistaxis, Hoarseness, Nasal Congestion, Pharyngeal Erythema, Rhinnorhea, Thrush, Tonsillar Exudate, Other Neck: No: WNL, Supple, Trachea Midline, Decreased ROM, Lymphadenopathy, Rigid, Tenderness, Thyromegaly, Other Cardiovascular: No: WNL, Regular Rate and Rhythm, Bradycardia, Tachycardia, Pulse Irregular, Bruit, JVD, Gallop, Murmur, Rub, S1, S2, S3, S4, Varicosities, Other Respiratory: No: WNL, Regular, CTA Bilaterally, Accessory Muscle Use, Bradypnea , Reyes-Ramirez, Cough, Diminished, Dullness, Hyperresonant, Intubated, Kussmaul , Mechanically Ventilated, On BiPap, On Nasal O2, On Venti-Mask, Orthopnea, Poor Air Entry, Rales, Rhonchi, SOB, SOB on Exertion, Stridor, Tachypnea, Wheezes, Other Gastrointestinal Inspection: Yes: WNL (RUQ / epigastric tenderness without rebound or guarding , soft , nml bowel sounds) ...Auscultate: Yes: Normoactive Bowel Sounds Labs: CBC, BMP 04/16/18 03:40 04/16/18 03:40 Imaging - Results Chest X-ray: Report Reviewed Cat Scan: Report Reviewed Ultrasound: Report Reviewed Problem List - Problems (1) Abnormal LFTs Code(s): R94.5 - ABNORMAL RESULTS OF LIVER FUNCTION STUDIES (2) Abdominal pain Code(s): R10.9 - UNSPECIFIED ABDOMINAL PAIN Assessment/Plan Impression: RUQ abdominal pain / nausea/ vomiting / transaminitis - these findings are highly suspicious for a biliary etiology. Imaging results also reveal cholelithiasis. RECommendation: - NPO / IVF's - HIDA scan - empiric abx - cover with levaquin 500 mg IV qd and flagyl 500 mg IV q8 - surgery consultation - plan of care discussed with the primary medical team
[2018-04-16] MEDS ORDERED: PIPERACILLIN/TAZOB 3.375 GM 3.375 GM/50 ML BAG IVPB ONE (17:46)
[2018-04-16] MEDS: D5-NS + 20 MEQ KCL - 20 MEQ/1,000 ML INFUS.BAG IV SCH (19:48)
[2018-04-17] MEDS: D5-NS + 20 MEQ KCL - 20 MEQ/1,000 ML INFUS.BAG IV SCH ×3 (07:03→20:09)
[2018-04-17 07:53] LABS: BASO % 0.3 % (0-2.0); EOS % 0.4 % (0-4.5); HEMATOCRIT 40.6 % (32.4-45.2); HEMOGLOBIN 13.7 GM/dL (10.7-15.3); LYMPH % 23.2 % (8-40); MCH 29.9 pg (25.7-33.7); MCHC 33.7 g/dl (32.0-36.0); MEAN CELL VOLUME 88.7 fl (80-96); MONO % 7.6 % (3.8-10.2); NEUT % 68.5 % (42.8-82.8); PLATELET COUNT 244 K/MM3 (134-434); RBC 4.58 M/mm3 (3.60-5.2); RDW 13.6 % (11.6-15.6); WHITE BLOOD COUNT 10.7 K/mm3 (4.0-10.0)
[2018-04-17 08:28] LABS: ALBUMIN 3.5 g/dl (3.4-5.0); BILIRUBIN,DIRECT 0.2 mg/dL (0.0-0.2)
[2018-04-17 08:36] LABS: AMYLASE 74 U/L (25-115); ANION GAP 11 MMOL/L (8-16); BLOOD UREA NITROGEN 6 mg/dL (7-18); CALCIUM 8.4 mg/dL (8.5-10.1); CHLORIDE 104 mmol/L (98-107); CO2 25 mmol/L (21-32); CREATININE 0.6 mg/dL (0.55-1.02); GLUCOSE,RANDOM 123 mg/dL (74-106); LIPASE 164 U/L (73-393); POTASSIUM 3.8 mmol/L (3.5-5.1); SODIUM 140 mmol/L (136-145)
--- NOTE | 2018-04-17 08:38 | CONSULT ---
- Consultation REQUESTING PROVIDER: Colin Rivera DRY WALL APPLICATOR CONSULT REQUEST: We have been asked to surgically evaluate this patient for RUQ and epigastric pain w/ n/v. PCP:Arcelia Tyler HISTORY OF PRESENT ILLNESS: 57 y/o female presented w/ # recent episodes of colicky RUQ abdominal pain associated w/n/v; she came to the eR for evaluation and w/u reveals acute cholecystitis and cholelithiasis; she denies dark urine/light stools; she may have previously had this before. 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 PMHx: none PSHx: TAHBSO Home Medications Medication Instructions Recorded NK [No Known Home Medication] 04/16/18 Allergies Allergy/AdvReac Type Severity Reaction Status Date / Time No Known Drug Allergies Allergy Verified 04/16/18 02:09 REVIEW OF SYSTEMS: CONSTITUTIONAL: Absent: fever, chills, diaphoresis, generalized weakness, malaise, loss of appetite, weight change CARDIOVASCULAR: Absent: chest pain, syncope, palpitations, irregular heart rate, lightheadedness , peripheral edema RESPIRATORY: Absent: cough, shortness of breath, dyspnea with exertion, wheezing, stridor, hemoptysis GASTROINTESTINAL: Absent: abdominal pain, abdominal distension, nausea, vomiting, diarrhea, constipation, melena, hematochezia GENITOURINARY: Present: dysuria, frequency, urgency, hesitancy, hematuria, flank pain, MUSCULOSKELETAL: Absent: myalgia, arthralgia, joint swelling, back pain, neck pain SKIN: Absent: rash, itching, pallor HEMATOLOGIC/IMMUNOLOGIC: Absent: easy bleeding, easy bruising, lymphadenopathy NEUROLOGIC: Absent: headache, focal weakness, paresthesias, dizziness, unsteady gait, seizure, mental status changes, bladder or bowel incontinence PSYCHIATRIC: Absent: anxiety, depression, suicidal or homicidal ideation, hallucinations. PHYSICAL EXAM: GENERAL: Awake, alert, and fully oriented, in no acute distress. HEAD: Normal with no signs of trauma. EYES: sclera anicteric, conjunctiva clear. NECK: Normal ROM, supple without lymphadenopathy, JVD, or masses. ABDOMEN: Soft, tender RUQ w/guarding, not distended, normoactive bowel sounds, no rebound, no masses. No organomegaly. Healed lower midline scar w/o hernia. MUSCULOSKELETAL: Normal ROM at all joints. No bony deformities or tenderness. No CVA tenderness. UPPER EXTREMITIES: 2+ pulses, warm, well-perfused. No cyanosis. Cap refill <2 seconds. No peripheral edema. LOWER EXTREMITIES: 2+ pulses, warm, well-perfused. No calf tenderness. No peripheral edema. NEUROLOGICAL: Normal speech, gait not observed. PSYCH: Cooperative. Good eye contact. Appropriate mood and affect. SKIN: Warm, dry, normal turgor, no rashes or lesions noted. Vital Signs Temperature 99 F 04/17/18 05:34 Pulse Rate 72 04/17/18 05:34 Respiratory Rate 18 04/17/18 05:34 Blood Pressure 130/84 04/17/18 05:34 O2 Sat by Pulse Oximetry (%) 99 04/17/18 03:00 Lab Results WBC 10.7 K/mm3 (4.0-10.0) H 04/17/18 07:15 RBC 4.58 M/mm3 (3.60-5.2) 04/17/18 07:15 Hgb 13.7 GM/dL (10.7-15.3) 04/17/18 07:15 Hct 40.6 % (32.4-45.2) 04/17/18 07:15 MCV 88.7 fl (80-96) 04/17/18 07:15 MCHC 33.7 g/dl (32.0-36.0) 04/17/18 07:15 RDW 13.6 % (11.6-15.6) 04/17/18 07:15 Plt Count 244 K/MM3 (134-434) 04/17/18 07:15 Sodium 142 mmol/L (136-145) 04/16/18 03:40 Potassium 4.7 mmol/L (3.5-5.1) 04/16/18 03:40 Chloride 108 mmol/L (98-107) H 04/16/18 03:40 Carbon Dioxide 28 mmol/L (21-32) 04/16/18 03:40 Anion Gap 6 MMOL/L (8-16) L 04/16/18 03:40 BUN 13 mg/dL (7-18) 04/16/18 03:40 Creatinine 0.7 mg/dL (0.55-1.02) 04/16/18 03:40 Random Glucose 139 mg/dL (74-106) H 04/16/18 03:40 Calcium 8.6 mg/dL (8.5-10.1) 04/16/18 03:40 CTa/p and RUQ US images and reports reviewed. IMP: acute cholecystitis; cholelithiasis PLAN: lap ezequiel possible open; r/b/t/a's including conversion to an open procedure; tx. for retained possible cbd stones and possible bile duct/vascular injury d/w the patient in [place]ian; for OR today. Dieog Jernigan MD FACS
[2018-04-17] MEDS ORDERED: LIDOCAINE HCL/PF 2% SDV 5ML VIAL ONE (09:10)
[2018-04-17] MEDS ORDERED: DEXAMETHASONE SOD PHOSPHATE 4 MG/1 ML VIAL ONE (09:10)
[2018-04-17] MEDS ORDERED: PROPOFOL 20 ML ONE ×2 (09:10→11:24)
[2018-04-17] MEDS ORDERED: ONDANSETRON 4 MG/2 ML VIAL ONE (09:10)
[2018-04-17] MEDS ORDERED: fentaNYL CITRATE 250 MCG/5 ML VIAL ONE (09:10)
[2018-04-17] MEDS ORDERED: MIDAZOLAM HCL 2 MG/2 ML SINGLE DOSE VIAL ONE (09:33)
[2018-04-17] MEDS ORDERED: PANTOPRAZOLE SODIUM 40 MG VIAL IVPUSH SCH (10:00)
[2018-04-17] MEDS ORDERED: BUPIVACAINE HCL/PF 0.5% (5MG/ML) 10 ML VIAL IJ ONE (10:46)
[2018-04-17] MEDS ORDERED: ACETAMINOPHEN 1000 MG/100 ML VIAL (NON FORMULARY) IVPB PRN (10:56)
[2018-04-17] MEDS ORDERED: GLYCOPYRROLATE 0.2 MG/1 ML VIAL ONE (11:10)
[2018-04-17] MEDS ORDERED: NEOSTIGMINE METHYLSULFATE 0.5 MG/ML - 10 ML MDV ONE (11:10)
[2018-04-17] MEDS ORDERED: KETOROLAC TROMETHAMINE 30 MG/1 ML VIAL ONE (11:11)
[2018-04-17] MEDS ORDERED: ACETAMINOPHEN INJECTION 100 ML IVPB ONE (12:05)
--- NOTE | 2018-04-17 12:05 | OP ---
Operative Note - Note: Operative Date: 04/17/18 Pre-Operative Diagnosis: acute cholecystitis/cholelithiasis Operation: laparoscopic cholecystectomy Findings: acute cholecystitis/cholelithiasis/gallbl;adder hydrops Post-Operative Diagnosis: Same as Pre-op Surgeon: Diego Jernigan Rac Specialist: Yovanny Mayo Anesthesiologist/COPY CAMERA OPERATOR: Rodrigo Evans Anesthesia: General Specimens Removed: gallbladder and contents Estimated Blood Loss (mls): 20
[2018-04-17] MEDS ORDERED: ONDANSETRON 4 MG/2 ML VIAL IVPUSH PRN (12:23)
[2018-04-17] MEDS ORDERED: ACETAMINOPHEN 325 MG TABLET (FP) PO PRN (12:25)
[2018-04-17] MEDS ORDERED: oxyCODONE HCL 5 MG TABLET PO PRN (12:25)
--- NOTE | 2018-04-17 12:27 | PN ---
Progress Note, Physician Chief Complaint: patient seen in PACU groggy but answering questions - Current Medication List Current Medications: Active Medications Acetaminophen (Ofirmev Injection -) 1,000 mg IVPB Q6H PRN PRN Reason: FEVER Last Admin: 04/17/18 12:11 Dose: 1,000 mg Fentanyl (Sublimaze Injection -) 50 mcg IVPUSH [id number] PRN PRN Reason: PAIN-PACU ORDER X 4 DOSES ONLY Dextrose/Sodium Chloride (Dextrose 5%-Normal Saline+20 Meq Kcl -) 20 meq in 1, 000 mls @ 100 mls/hr IV ASDIR NIYA Last Admin: 04/17/18 07:03 Dose: 100 mls/hr Metronidazole (Flagyl 500mg Premixed Ivpb -) 500 mg in 100 mls @ 100 mls/hr IVPB Q8H-IV NIYA Last Admin: 04/17/18 02:39 Dose: 100 mls/hr Levofloxacin (Levaquin 500 Mg Premixed Ivpb -) 500 mg in 100 mls @ 100 mls/hr IVPB DAILY [facility]; Protocol Last Admin: 04/16/18 19:31 Dose: 100 mls/hr Ondansetron HCl (Zofran Injection) 4 mg IVPUSH Q6H PRN PRN Reason: NAUSEA Last Admin: 04/16/18 20:20 Dose: 4 mg Oxycodone/Acetaminophen (Percocet 5/325 -) 1 combo PO Q4HPO PRN PRN Reason: PAIN LEVEL 6-10 Pantoprazole Sodium (Protonix Iv) 40 mg IVPUSH DAILY [facility] - Objective Vital Signs: Vital Signs Temperature 98.8 F 04/17/18 11:32 Pulse Rate 76 04/17/18 12:15 Respiratory Rate 18 04/17/18 12:15 Blood Pressure 124/71 04/17/18 12:15 O2 Sat by Pulse Oximetry (%) 93 L 04/17/18 12:15 Constitutional: Yes: Calm Neck: Yes: Trachea Midline Cardiovascular: Yes: Regular Rate and Rhythm, S1, S2 Respiratory: Yes: CTA Bilaterally Gastrointestinal: Yes: Soft, Other (RUQ steri strips) Extremities: Yes: Other (scd noted) Labs: CBC, BMP 04/17/18 07:15 04/17/18 07:15 Problem List - Problems (1) Symptomatic cholelithiasis Assessment/Plan: - Note: Operative Date: 04/17/18 Pre-Operative Diagnosis: acute cholecystitis/cholelithiasis Operation: laparoscopic cholecystectomy Findings: acute cholecystitis/cholelithiasis/gallbl;adder hydrops Post-Operative Diagnosis: Same as Pre-op Surgeon: Diego Jernigan Meat Cutter: Yovanny Mayo Anesthesiologist/HAT MARKER: Rodrigo Evans Anesthesia: General Specimens Removed: gallbladder and contents Estimated Blood Loss (mls): 20 clear liquid diet ivf iv morphine prn Code(s): K80.20 - CALCULUS OF GALLBLADDER W/O CHOLECYSTITIS W/O OBSTRUCTION (2) Abnormal LFTs Assessment/Plan: STILL elevated but trending down Code(s): R94.5 - ABNORMAL RESULTS OF LIVER FUNCTION STUDIES
--- NOTE | 2018-04-17 18:45 | PN ---
GI Progress Note Subjective: No acute events S/P Lap Cortney States feeling well - Objective Vital Signs: Vital Signs Temperature 98.5 F 04/17/18 13:28 Pulse Rate 82 04/17/18 13:28 Respiratory Rate 20 04/17/18 13:28 Blood Pressure 122/77 04/17/18 13:28 O2 Sat by Pulse Oximetry (%) 92 L 04/17/18 13:28 Constitutional: Calm Eyes: No: Sclera Icterus Cardiovascular: Yes: Regular Rate and Rhythm Respiratory: Yes: CTA Bilaterally Gastrointestinal Inspection: Yes: Scars (dressed trochar sites x 4). No: Distention ...Auscultate: Yes: Normoactive Bowel Sounds ...Palpate: Yes: Tenderness (Mild tenderness @ trochar sites) ...Percussion: No: Tympanitic Edema: No (No LE edema) Neurological: Yes: Alert Labs: CBC, BMP 04/17/18 07:15 04/17/18 07:15 Hepatic Panel Total Bilirubin 1.0 mg/dL (0.2-1.0) 04/17/18 07:15 Direct Bilirubin 0.2 mg/dL (0.0-0.2) 04/17/18 07:15 AST 26 U/L (15-37) 04/17/18 07:15 ALT 98 U/L (12-78) H 04/17/18 07:15 Alkaline Phosphatase 135 U/L (45-117) H D 04/17/18 07:15 Albumin 3.5 g/dl (3.4-5.0) 04/17/18 07:15 Problem List - Problems (1) Acute calculous cholecystitis Assessment/Plan: S/P Lap Cortney today Monitor LFTs Post op care per surgery Code(s): K80.00 - CALCULUS OF GALLBLADDER W ACUTE CHOLECYST W/O OBSTRUCTION
[2018-04-18] MEDS: D5-NS + 20 MEQ KCL - 20 MEQ/1,000 ML INFUS.BAG IV SCH (06:22)
[2018-04-18 07:30] LABS: BASO % 0.3 % (0-2.0); EOS % 0.2 % (0-4.5); HEMOGLOBIN 12.5 GM/dL (10.7-15.3); LYMPH % 26.3 % (8-40); MCH 30.2 pg (25.7-33.7); MCHC 33.9 g/dl (32.0-36.0); MEAN CELL VOLUME 89.3 fl (80-96); MONO % 7.6 % (3.8-10.2); NEUT % 65.6 % (42.8-82.8); PLATELET COUNT 234 K/MM3 (134-434); RBC 4.14 M/mm3 (3.60-5.2); RDW 13.5 % (11.6-15.6); WHITE BLOOD COUNT 9.8 K/mm3 (4.0-10.0)
--- NOTE | 2018-04-18 08:13 | PN ---
Progress Note (short form) - Note Progress Note: 57yo F s/p Lap ezequiel POD 1. Pt seen and examined at bedside. Pt states that she is feeling well. Pt tolerating liquids, urinating, and ambulating well. Pt denies n/v, fever, chills. Complains of mild abdominal pain. Last Vital Signs Temp Pulse Resp BP Pulse Ox 98.3 F 68 20 123/74 92 L 04/18/18 05:51 04/18/18 05:51 04/18/18 05:51 04/18/18 05:51 04/17/18 19:00 CBC, BMP 04/18/18 07:00 PE: Gen: A&O x3 Resp: breathing comfortably ABd: soft, nondistended, mild tenderness, incisions clean with no erythema or drainage. Legs: no edema Problem List - Problems (1) Acute calculous cholecystitis Assessment/Plan: Plan -advance diet, if pt is tolerating may discharge home from surgical side. -pt should follow up in [address] Jernigan in his outpatient office. Pt seen and examined with Dr. Jernigan who agrees with plan Code(s): K80.00 - CALCULUS OF GALLBLADDER W ACUTE CHOLECYST W/O OBSTRUCTION
[2018-04-18 08:21] LABS: ANION GAP 6 MMOL/L (8-16); BILIRUBIN,TOTAL 0.7 mg/dL (0.2-1.0); BLOOD UREA NITROGEN 8 mg/dL (7-18); CALCIUM 8.3 mg/dL (8.5-10.1); CHLORIDE 110 mmol/L (98-107); CO2 26 mmol/L (21-32); CREATININE 0.6 mg/dL (0.55-1.02); GLUCOSE,RANDOM 107 mg/dL (74-106); POTASSIUM 4.6 mmol/L (3.5-5.1); SGOT/AST 34 U/L (15-37); SGPT/ALT 88 U/L (12-78); SODIUM 142 mmol/L (136-145); TOT PROT 6.3 g/dl (6.4-8.2)
[2018-04-18 08:22] LABS: ALK PHOS 112 U/L (45-117)
[2018-04-18] MEDS ORDERED: PANTOPRAZOLE SODIUM 40 MG VIAL IVPUSH SCH (10:00)
--- NOTE | 2018-04-18 10:32 | DS ---
Physical Examination Vital Signs: Vital Signs Temperature 98.3 F 04/18/18 05:51 Pulse Rate 68 04/18/18 05:51 Respiratory Rate 20 04/18/18 05:51 Blood Pressure 123/74 04/18/18 05:51 O2 Sat by Pulse Oximetry (%) 92 L 04/17/18 19:00 Constitutional: Yes: Calm Neck: Yes: Trachea Midline Cardiovascular: Yes: Regular Rate and Rhythm, S1, S2 Respiratory: Yes: CTA Bilaterally Gastrointestinal: Yes: Normal Bowel Sounds, Soft, Other (three bandage clean on abdomen) Edema: No Neurological: Yes: Alert, Oriented Labs: CBC, BMP 04/18/18 07:00 04/18/18 07:00 Discharge Summary Reason For Visit: INTRACTABLE VOMITING W NAUSEA Current Active Problems Abnormal LFTs (Acute) Acute calculous cholecystitis (Acute) Intractable nausea and vomiting (Acute) Symptomatic cholelithiasis (Acute) Other Procedures: - Note: Operative Date: 04/17/18. Pre-Operative Diagnosis: acute cholecystitis/cholelithiasis. Operation: laparoscopic cholecystectomy. Findings: acute cholecystitis/cholelithiasis/gallbl;adder hydrops. Post- Operative Diagnosis: Same as Pre-op. Surgeon: Diego Jernigan Aircraft Time Clerk: Yovanny Mayo. Anesthesiologist/PROJECT PLANNER: Rodrigo Evans. Anesthesia: General. Specimens Removed: gallbladder and contents. Estimated Blood Loss (mls): 20 Hospital Course: - Primary Care Physician PCP: Arcelia Tyler - Admission Chief Complaint: abdominal pain. Nausea/Vomiting History of Present Illness: atient endorsed to me by Dr. Hogan. Patient is a 57-year-old female with no previous significant medical history who presented with right upper quadrant and epigastric pain associated with numerous episodes of intractable vomiting and nausea requiring several doses of antiemetic parenteral medication. Right upper quadrant ultrasound reveals numerous gallstones and a questionable hepatic lesion which requires further investigation with contrast-enhanced CT. No evidence of acute cholecystitis is present. CBC is within normal limit. CMP reveals elevated AST, ALT and alkaline phosphatase. Normal bilirubin is noted. Given the presence of gallstones, persistent abdominal pain and abnormal LFTs, patient will require admission for further evaluation. Will consult GI. History Source: Patient, Medical Record Limitations to Obtaining History: No Limitations hospital course: s/p lap ezequiel advance diet today lft trending down FU with surgery in one week Condition: Good - Instructions Diet, Activity, Other Instructions: Dr. Jernigan Discharge Instructions Dear KARAN BEVERLY, Post Operative Instructions Physical activity Resume your normal everyday activity as tolerated no heavy lifting or exercise until seen by your surgeon. You may walk unlimited amounts of and climb stairs. You may resume driving the car when you feel safe and comfortable behind the wheel. Wound care If you have a bandage, leave it on, and keep dry for 48 - 72 hours. After that time discard the outer bandage. If there are tapes on the skin under the outer bandage, leave them in place. They will peel off in the next 7 to 10 days. Do Not peel them off. You may shower 2 days after surgery. If there are tapes present on the skin, they can get wet. Diet There are no dietary restrictions. Eat healthy, high-fiber foods. Drink 6 to 8 glasses of liquid each day. This will assist in keeping your bowels are regular. Pain management You may take Tylenol or acetaminophen or Ibuprofen (for example, Motrin, Advil etc.) Any pain prescription medication ordered should be taken as prescribed for moderate to severe pain. Call Dr. Jernigan for any of the following: Severe pain not relieved by medication Fever of 101 or higher Excessive bleeding or drainage on dressing Inability to urinate Call the office at [phone] for a post operative appointment in 7 - 10 days. Referrals: Praveena Mena [Primary Care Provider] - Disposition: HOME - Home Medications Comprehensive Discharge Medication List: Ambulatory Orders NK [No Known Home Medication] 04/16/18
[2018-04-18 10:35] VITALS: BP 131/67; PULSE 84; TEMP 98.6
--- NOTE | 2018-04-22 12:09 | OP ---
DATE OF OPERATION: 04/17/2018 PREOPERATIVE DIAGNOSIS: Acute cholecystitis and cholelithiasis. POSTOPERATIVE DIAGNOSIS: Acute cholecystitis and cholelithiasis. PROCEDURE: Laparoscopic cholecystectomy. SURGEON: Diego Jernigan MD PRE PRESS PROOFER: Yovanny Mayo MD ANESTHESIA: General. OPERATIVE FINDINGS: There was acute cholecystitis, cholelithiasis, and gallbladder hydrops. The rest of the findings were unremarkable. DESCRIPTION OF PROCEDURE: The patient was placed on the operating room table in supine position. After the induction of general anesthesia, the patient's abdomen was prepped with ChloraPrep and draped in sterile fashion. Time-out was taken and then pneumoperitoneum established above the umbilicus using a Veress needle. Once 15 mm of intra-abdominal pressure was obtained, a 5-mm port was placed at the umbilicus. Additional lateral 5-mm ports and a subxiphoid 12-mm port were placed and laparoscopy carried out, and the previously noted findings were observed. The gallbladder was placed on cephalad and lateral traction, and dissection was begun at the neck of the gallbladder where the peritoneum was opened medially and laterally using blunt and sharp dissection and electrocautery. Dissection continued in the triangle of Calot where the cystic duct was identified coursing from the neck of the gallbladder distally to the common bile duct. It was dissected proximally and distally for length. Similarly, the artery was similarly identified and dissected. A critical view of safety was taken, and then the cystic duct divided proximally and distally using Endo Markie after it was clipped twice proximally and distally with large hemoclips. The artery was similarly clipped and divided. Hemostasis was checked for and noted to be good and then the gallbladder was removed from the liver bed in a retrograde fashion using electrocautery. Prior to removal from the edge of the liver, hemostasis was again verified and then the gallbladder removed from the edge of the liver, placed in an EndoCatch, and brought out through the subxiphoid port. Pneumoperitoneum was reestablished, hemostasis verified again, and then the 5-mm lateral and subxiphoid ports were removed under laparoscopic vision without evidence of bleeding from the port sites. The umbilical port was removed and the pneumoperitoneum evacuated. All port sites were infiltrated with 0.5% Marcaine and the skin edges closed with 4-0 Biosyn in a subcuticular and continuous fashion. Steri-Strips and Band-Aid dressings were placed and the procedure terminated at this point and the patient aroused from general anesthesia and transferred to the post anesthesia care unit in stable condition awake and alert. ESTIMATED BLOOD LOSS: 20 mL. REPLACEMENTS: Crystalloid. DRAINS: None. SPECIMENS: Gallbladder and contents to pathology. I, Diego Jernigan, was physically present in the operating room from the time the patient was placed on the operating room table until she was transferred to the post-anesthesia care unit in my accompaniment. MD DIEGO Chavez/[id number] MTDD
== END 2018-04-18 12:53 | disposition home or self-care (01) ==
LOC: JER 00:15 → INTOOBSV 13:14 → JERBED 13:14 → UNDOADMOB 13:14 → JERBED 16:52 → J6S 20:27
PROVIDERS: ADMIT Family Medicine; ATTEND Family Medicine
PROC: 0FT44ZZ Resection of Gallbladder, Percutaneous Endoscopic Approach (ICD-10-PCS; principal; 2018-04-16)
PROC: 3E033NZ Introduction of Analgesics, Hypnotics, Sedatives into Peripheral Vein, Percutaneous Approach (ICD-10-PCS; 2018-04-16)
PROC: 3E033GC Introduction of Other Therapeutic Substance into Peripheral Vein, Percutaneous Approach (ICD-10-PCS; 2018-04-16)
PROC: 3E0337Z Introduction of Electrolytic and Water Balance Substance into Peripheral Vein, Percutaneous Approach (ICD-10-PCS; 2018-04-16)
DX: K80.00 Calculus of gallbladder with acute cholecystitis without obstruction (principal); R11.2 Nausea with vomiting, unspecified; R94.5 Abnormal results of liver function studies
CPT/HCPCS: 36415; 74177-TC; 76705-TC; 80048; 80053; 80076; 81003; 82150; 83690; 84703; 85025; 93005; 93010; 94010; 94760; 99285-25; G0378; J0131; J7030

== ENCOUNTER 2021-03-16 09:14 | Emergency (ER) | payer OTHER ==
[2021-03-16 09:22] VITALS: BP 135/85; PULSE 87; TEMP 98.2; BMI 31.7
[2021-03-16] MEDS ORDERED: LIDOCAINE 5% TOPICAL PATCH TP ONE (09:56)
[2021-03-16] MEDS ORDERED: KETOROLAC TROMETHAMINE 30 MG/1 ML VIAL IM ONE (09:56)
[2021-03-16] MEDS ORDERED: KETOROLAC TROMETHAMINE 30 MG/1 ML VIAL ONE (10:02)
[2021-03-16] MEDS ORDERED: LIDOCAINE 5% TOPICAL PATCH ONE (10:02)
[2021-03-16] MEDS ORDERED: LIDOCAINE PATCH REMOVAL MC ONE (22:00)
== END 2021-03-16 11:40 | disposition home or self-care (01) ==
LOC: JERFT 09:14
PROC: 3E0233Z Introduction of Anti-inflammatory into Muscle, Percutaneous Approach (ICD-10-PCS; principal; 2021-03-16)
DX: M54.31 Sciatica, right side (principal)
CPT/HCPCS: 72100-TC-FY; 73523-TC-FY; 99284-25